=== PATIENT | male | born 1950 | race Caucasian/White ===

== ENCOUNTER 2018-02-14 03:06 | Inpatient (IN) | payer MEDICARE, OTHER ==
[2018-02-14] MEDS ORDERED: Magnesium Sulfate 2 GM/100 ML BAG ONE (03:13)
[2018-02-14] MEDS ORDERED: methylPREDNISolone Sod Succ/PF 125 MG/2 ML VIAL ONE ×2 (03:13→10:24)
[2018-02-14] MEDS ORDERED: Water For Inject, Bacteriostat 30 ML ONE ×2 (03:14→10:24)
[2018-02-14] MEDS ORDERED: Albuterol Sulfate 2.5 mg/3 ml Neb ONE ×4 (03:17)
[2018-02-14 03:29] LABS: #Basophils 0.1 thou/uL (0.0-0.2); #Eosinphils 0.9 thou/uL (0.0-0.7); #Lymphocytes 5.1 thou/uL (1.20-3.40); #Monocytes 1.4 thou/uL (0.11-0.59); #Neutrophils 5.9 thou/uL (1.40-6.50); %Basophils 0.5 % (0.0-1.0); %Eosinophils 6.6 % (0.0-10.0); %Lymphocytes 38.4 % (21.0-51.0); %Monocytes 10.2 % (0.0-10.0); %Neutrophils 44.3 % (42.0-75.0); Hemoglobin 17.3 g/dL (14.0-18.0); Mean Corpuscular HGB CONC 32.8 g/dL (32.0-36.0); Mean Corpuscular Hemoglobin 30.5 pg (27.0-31.0); Mean Corpuscular Volume 93.1 fL (78.0-98.0); Mean Platelet Volume 7.3 fL (7.4-10.4); Platelet Count 238 thou/uL (130-400); RBC Distribution Width 12.1 % (11.5-14.5); Red Blood Cell (RBC) Count 5.67 mill/uL (4.70-6.10); White Blood Cell (WBC) Count 13.2 thou/uL (4.8-10.8)
[2018-02-14 03:52] LABS: ALT (SGPT) 34 U/L (8-55); AST (SGOT) 26 U/L (5-34); Albumin 4.4 g/dL (3.4-4.8); Alkaline Phosphatase 55 U/L (40-150); Anion Gap 15 mmol/L (10-20); BUN (Urea Nitrogen) 9 mg/dL (8.4-25.7); Bilirubin, Total 0.6 mg/dL (0.2-1.2); CK (CPK) 294 U/L (30-200); Calc. Creatinine Clearance 0 mL/min (70-130); Calcium 10.2 mg/dL (7.8-10.44); Carbon Dioxide 28 mmol/L (23-31); Chloride 103 mmol/L (98-107); Estimated GFR-MDRD 73; Globulin 3.1 g/dL (2.4-3.5); Glucose 170 mg/dL (80-115); Potassium 3.4 mmol/L (3.5-5.1); Protein, Total 7.5 g/dL (5.8-8.1); Sodium 143 mmol/L (136-145)
[2018-02-14 03:53] LABS: Actual Bicarbonate (HCO3a) 29.7 mEq/L (22-28); Base Excess (BEa) 1.4 mEq/L (-2.0 to +3.0); CO2 Tension 61.8 mmHg (35.0-45.0); Hematocrit-ABG 50.9 % (42.0-52.0); Hemoglobin (Hb) 16.2 g/dL (14.0-18.0); O2 Tension (PaO2) 105.4 mmHg (> 80.0)
[2018-02-14 03:54] LABS: Analyzer IN Cardio ER; Calcium, Ionized 1.3 mmol/L (1.12-1.30); Puncture Site RRA
[2018-02-14 03:54] LABS: Troponin I 0.012 ng/mL (< 0.028)
[2018-02-14 04:01] LABS: CKMB 7.6 ng/mL (0-6.6)
[2018-02-14] MEDS ORDERED: Azithromycin 500 MG VIAL ONE (04:20)
[2018-02-14] MEDS ORDERED: cefTRIAXone\\ROCEPHIN 1 GM VIAL ONE (04:20)
[2018-02-14] MEDS ORDERED: Ondansetron HCl/PF 4 MG/2 ML Vial IVP PRN (04:23)
[2018-02-14] MEDS ORDERED: Acetaminophen 325 MG TAB PO PRN (04:23)
[2018-02-14] MEDS ORDERED: Furosemide 40 MG/4 ML VIAL SLOW IVP SCH (06:05)
[2018-02-14 06:29] LABS: Bilirubin Negative (Negative); Blood, Urine Negative (Negative); Clarity CLEAR (Clear); Glucose, Urine (Dipstick) Negative (Negative); Leukocyte Negative (Negative); Nitrite Negative (Negative); Protein, Urine (Dipstick) 30 mg/dL (Neg-Trace); Urobilinogen 0.2 mg/dL (0.2-1.0)
[2018-02-14 06:34] LABS: Bacteria/HPF None Seen HPF (None Seen); Hyaline Casts/LPF 0-3 HYALINE CAST LPF (0-3 Hyaline); RBC/HPF None Seen HPF (0-3); Squamous Epithelial None Seen HPF (0-3); WBC/HPF None Seen HPF (0-3)
[2018-02-14 07:46] LABS: Troponin I 0.046 ng/mL (< 0.028)
[2018-02-14] MEDS ORDERED: Furosemide 40 MG/4 ML VIAL ONE (08:00)
--- NOTE | 2018-02-14 08:38 | CT ---
CT CHEST NONCONTRAST: Date; 02/14/18 HISTORY: Dyspnea. Chest pain. FINDINGS: Exam was originally intended to be a CT arteriogram chest. Technical difficulty with contrast injecti on was encountered. This is a noncontrast CT exam. Tiny, partially calcified nodule at the left posterolateral lung base likely represents a calcified g ranuloma. Other scattered calcified granulomata are evident. Lungs are hyperinflated with scattered a reas of interstitial thickening. No focal infiltrate, pleural fluid, or pneumothorax. Lack of contrast limits evaluation of the soft tissues. There is scattered arterial calcification. No bulky mediastinal adenopathy. No secondary findings of large pulmonary embolus are evident. IMPRESSION: 1. Noncontrast CT chest exam was performed. No secondary findings of large pulmonary embolus or othe r acute abnormalities. 2. COPD. 3. Atherosclerosis. POS: FAM
--- NOTE | 2018-02-14 09:44 | RAD ---
PORTABLE CHEST: Date: 02/14/18 PROVIDED CLINICAL HISTORY: Dyspnea. FINDINGS: No comparisons. Cardiac and mediastinal silhouette is within normal limits. Nonspecific prominence of the hilar regio ns bilaterally. No definite focal consolidation, pleural fluid, or pneumothorax apparent. IMPRESSION: No radiographic evidence for an acute cardiopulmonary process. Please correlate with the subsequently performed CT chest. POS: [facility]
[2018-02-14] MEDS ORDERED: Enoxaparin Sodium 40 MG/0.4 ML SYRINGE ONE (10:05)
--- NOTE | 2018-02-14 10:12 | HP ---
CODE STATUS: FULL CODE. TIME OF EVALUATION: 04:20 a.m. PRIMARY CARE DOCTOR: The patient goes to CT, CHIEF COMPLAINT: Severe shortness of breath. HISTORY OF PRESENT ILLNESS: This is a 67 years old male patient with a past medical history of chron ic obstructive pulmonary disease, chronic respiratory failure, came to the hospital after having mirela re gradually worsening shortness of breath. The symptoms have been present for the past 2 days; broderick eugene, slowly got worse overnight, patient arrived to the ER, came by himself. He was cyanotic, lethar gic, saturation was in the 60s, patient improved with oxygen and BiPAP application. By the time of m y examination, vitals are improved, still tachycardic, still with significant bilateral wheezing; how ever, mental status much better. The patient is reporting he is feeling better, able to answer with yes or no questions. The patient also reported associated cough. Review of systems information was gathered from and the patient with the yes or no questions, since he is still in labored breathi ng. REVIEW OF SYSTEMS: Constitutional: No fever, no chills. The patient was reporting generalized weak ness. Respiratory: Cough, sputum production, gradually worsening severe shortness of breath. Cardi ovascular: No chest pain. Patient reported palpitations. Gastrointestinal: No nausea, vomiting. No diarrhea or abdominal pain. 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 Genitourinary: No burning on urination. Extremities: Bilateral leg swelling. All other systems were reviewed an d negative except for the findings mentioned above. PAST MEDICAL HISTORY: CVA in 2013, hyperlipidemia, hypertension, COPD, emphysema. PAST SURGICAL HISTORY: Orthopedic surgery in the shoulders, bilaterally; appendectomy. PSYCHIATRIC HISTORY: No psychiatric history. SOCIAL HISTORY: Four drinks a day; former smoker, quit 20 years ago. KNOWN ALLERGIES: DURAPREP. REPORTED MEDICATIONS: Pantoprazole, prednisone. PHYSICAL EXAMINATION: VITAL SIGNS: On presentation, heart rate 127, respiratory rate 27, oxygen saturation 96% on BiPAP. GENERAL APPEARANCE: The patient is in respiratory distress, alert, oriented. HEENT: Eye, normal conjunctivae. Moist oral mucosa. Eye anicteric. NECK: No JVD. RESPIRATORY: Bilateral air entry is reduced. The patient has bilateral wheezing. Symmetric expansi on . CARDIOVASCULAR: Patient is tachycardic, regular rhythm, no murmurs, no gallop. Bilateral leg edema. ABDOMEN: Soft, normal bowel sounds. MUSCULOSKELETAL: Baseline range of motion and strength. No tenderness. SKIN: Warm and intact. No pain. No rash. No redness. NEUROLOGIC: Baseline sensory. No evidence of any new focal weakness. Baseline speech. Cranial ner ves seem to be intact. PSYCHIATRIC: The patient is in good mood, no anxiety, oriented, optimal judgment. EKG, as discussed with the performing physician, he had a sinus tachycardia at the rate of 127. No e vidence of any acute ischemic findings. RADIOLOGY: Chest showed cardiomegaly, small pleural vascular congestion, no infiltrate. LABORATORY DATA: Labs were reviewed. The patient had a white count of 13.2, hemoglobin 17, MCV 93, platelet count 238. Blood gas was done, pH 7.3, pCO2 of 61, pO2 of 105 that was done on BiPAP, and 2 8% mechanical rate was . Chemistry: Sodium 143, potassium 3.4, chloride 103, carbon dioxide 20 , anion gap 15, BUN 9, creatinine 1.0, GFR 73, glucose 170, lactic acid 5.6, calcium 10.2, total bili goodson 0.6. AST, ALT, and alkaline phosphatase were normal. CK 294. Troponin was normal. Beta natr iuretic peptide was 20. ASSESSMENT AND PLAN: The patient was placed in the hospital for the following medical problems: 1. Acute hypoxic-hypercapnic respiratory failure, secondary to chronic obstructive pulmonary disease exacerbation that is severe, patient is on BiPAP, has improved. We will continue nebulizers, Solume drol, receive antibiotics. We will adjust the treatment depending on patient's clinical response. W e will consult Pulmonary in the morning. 2. Severe chronic obstructive pulmonary disease exacerbation. Treatment as above. 3. Leukocytosis, likely secondary to acute distress, no source of sepsis was found, has been treated for acute bronchitis. We will follow. We will treat accordingly. Patient is already receiving ant ibiotics. 4. Hypokalemia. This is mild, 3.4, we will replace electrolytes as needed. 5. Lactic acidosis, 5.6, likely secondary to hypoxia, was drained, patient already on antibiotics. 6. Hyperglycemia, likely due to acute distress. We will monitor. No need for any acute treatment a t this point. 7. Uncontrolled hypertension, secondary to acute physical distress. We will reconcile home medicati ons. Adjust as needed. 8. Deep vein thrombosis prophylaxis.
[2018-02-14 11:10] LABS: Troponin I 0.072 ng/mL (< 0.028)
[2018-02-14] MEDS ORDERED: ISOVUE-370 76%-LOCM 1 ML ONE (14:46)
[2018-02-14 15:10] VITALS: BMI 36.1
[2018-02-14] MEDS: Enoxaparin Sodium 40 MG/0.4 ML SYRINGE SC SCH (15:47)
[2018-02-14] MEDS: methylPREDNISolone Sod Succ/PF 125 MG/2 ML VIAL IVP SCH ×3 (15:48→21:08)
[2018-02-14] MEDS ORDERED: hydrALAZINE 20 MG/ML VIAL SLOW IVP SCH (17:15)
[2018-02-14] MEDS ORDERED: Fluticasone Propionate Nasal Spray 16 gm Bottle NASAL PRN (18:11)
[2018-02-15] MEDS: methylPREDNISolone Sod Succ/PF 125 MG/2 ML VIAL IVP SCH ×4 (04:05→20:27)
[2018-02-15] MEDS ORDERED: Azithromycin 500 MG in Sodium Chloride 0.9% 250 ML 250 ML IVPB SCH (04:30)
[2018-02-15] MEDS ORDERED: cefTRIAXone\\ROCEPHIN 1 GM in Sodium Chloride 0.9% 100 ML IVPB SCH (04:30)
[2018-02-15 05:15] LABS: #Lymphocytes 1.3 thou/uL (1.20-3.40); #Monocytes 0.4 thou/uL (0.11-0.59); #Neutrophils 9.3 thou/uL (1.40-6.50); %Basophils 0.3 % (0.0-1.0); %Eosinophils 0.1 % (0.0-10.0); %Lymphocytes 11.8 % (21.0-51.0); %Monocytes 3.3 % (0.0-10.0); %Neutrophils 84.5 % (42.0-75.0); Mean Corpuscular HGB CONC 32.4 g/dL (32.0-36.0); Mean Corpuscular Hemoglobin 29.6 pg (27.0-31.0); Mean Corpuscular Volume 91.6 fL (78.0-98.0); Mean Platelet Volume 7.4 fL (7.4-10.4); Platelet Count 235 thou/uL (130-400); RBC Distribution Width 12.1 % (11.5-14.5)
[2018-02-15 05:24] LABS: Anion Gap 18 mmol/L (10-20); BUN (Urea Nitrogen) 18 mg/dL (8.4-25.7); Calc. Creatinine Clearance 131 mL/min (70-130); Calcium 9.5 mg/dL (7.8-10.44); Carbon Dioxide 26 mmol/L (23-31); Chloride 103 mmol/L (98-107); Estimated GFR-MDRD 82; Glucose 167 mg/dL (80-115); Potassium 3.6 mmol/L (3.5-5.1); Sodium 143 mmol/L (136-145)
[2018-02-15] MEDS: Enoxaparin Sodium 40 MG/0.4 ML SYRINGE SC SCH (09:50)
[2018-02-15] MEDS: Benzonatate 100 MG CAP PO PRN ×2 (09:50→20:24)
[2018-02-15] MEDS ORDERED: Albuterol Sulfate 2.5 mg/3 ml Neb NEB PRN (12:01)
[2018-02-15] MEDS ORDERED: Hydrochlorothiazide 25 MG TAB PO SCH (12:30)
[2018-02-15] MEDS ORDERED: CROMOLYN SODIUM EA EYE SCH (13:00)
[2018-02-15] MEDS: Mometasone 100 MCG HFA INHALER INH SCH (19:10)
[2018-02-15] MEDS: Mometasone/Formoterol 120 PUFF INHALER INH SCH (19:11)
[2018-02-15] MEDS: Atorvastatin Calcium 20 MG TAB PO SCH (20:24)
[2018-02-15] MEDS: Loratadine 10 MG TAB PO SCH (20:24)
[2018-02-15] MEDS: Azelastine 137 MCG/Spray 30 ML NS SCH (20:51)
[2018-02-16] MEDS ORDERED: Nitroglycerin 0.4 MG TAB (25 Tab Bottle) PO PRN (02:49)
[2018-02-16] MEDS ORDERED: hydrALAZINE 20 MG/ML VIAL SLOW IVP PRN (02:50)
[2018-02-16] MEDS: methylPREDNISolone Sod Succ/PF 125 MG/2 ML VIAL IVP SCH ×2 (03:00→09:22)
[2018-02-16] MEDS: Losartan 25 MG TAB PO SCH (03:00)
[2018-02-16 03:36] LABS: #Lymphocytes 1.2 thou/uL (1.20-3.40); #Monocytes 0.3 thou/uL (0.11-0.59); #Neutrophils 12.1 thou/uL (1.40-6.50); %Eosinophils 0.1 % (0.0-10.0); %Lymphocytes 8.5 % (21.0-51.0); %Neutrophils 89.4 % (42.0-75.0); Hemoglobin 15.7 g/dL (14.0-18.0); Mean Corpuscular Hemoglobin 31.1 pg (27.0-31.0); Mean Corpuscular Volume 91.6 fL (78.0-98.0); Mean Platelet Volume 7.2 fL (7.4-10.4); Platelet Count 208 thou/uL (130-400); RBC Distribution Width 11.9 % (11.5-14.5); Red Blood Cell (RBC) Count 5.04 mill/uL (4.70-6.10); White Blood Cell (WBC) Count 13.5 thou/uL (4.8-10.8)
[2018-02-16 03:55] LABS: Anion Gap 13 mmol/L (10-20); BUN (Urea Nitrogen) 19 mg/dL (8.4-25.7); Calc. Creatinine Clearance 142 mL/min (70-130); Calcium 9.4 mg/dL (7.8-10.44); Carbon Dioxide 27 mmol/L (23-31); Chloride 104 mmol/L (98-107); Estimated GFR-MDRD 90; Glucose 195 mg/dL (80-115); Magnesium 2.5 mg/dL (1.6-2.6); Potassium 3.6 mmol/L (3.5-5.1); Sodium 140 mmol/L (136-145)
[2018-02-16 04:00] LABS: Troponin I 0.024 ng/mL (< 0.028)
[2018-02-16] MEDS: Benzonatate 100 MG CAP PO PRN (06:23)
[2018-02-16 07:02] LABS: Troponin I 0.014 ng/mL (< 0.028)
[2018-02-16] MEDS: Mometasone 100 MCG HFA INHALER INH SCH ×2 (07:56→18:53)
[2018-02-16] MEDS: Mometasone/Formoterol 120 PUFF INHALER INH SCH ×2 (07:56→18:55)
[2018-02-16] MEDS: Enoxaparin Sodium 40 MG/0.4 ML SYRINGE SC SCH (09:22)
[2018-02-16] MEDS: Hydrochlorothiazide 25 MG TAB PO SCH (09:23)
[2018-02-16] MEDS: Azelastine 137 MCG/Spray 30 ML NS SCH ×2 (09:23→20:46)
[2018-02-16] MEDS: Potassium Chloride 20 MEQ TAB PO SCH (09:23)
--- NOTE | 2018-02-16 10:51 | EKG ---
Test Reason : STAT Blood Pressure : / mmHG Vent. Rate : 091 BPM Atrial Rate : 091 BPM P-R Int : 152 ms QRS Dur : 102 ms QT Int : 378 ms P-R-T Axes : 061 059 073 degrees QTc Int : 464 ms Normal sinus rhythm Minimal voltage criteria for LVH, may be normal variant Borderline ECG When compared with ECG of 14-FEB-2018 03:18, (Unconfirmed) ST less depressed in Lateral leads T wave inversion no longer evident in Inferior leads Confirmed by COLLINS FARNSWORTH, DR. Vickers ([id number]) on 02/16/2018 10:50:21 AM Referred By: ANIL Confirmed By:DR. Rancho GUADALUPE MD
[2018-02-16] MEDS: Loratadine 10 MG TAB PO SCH (20:46)
[2018-02-16] MEDS: Atorvastatin Calcium 20 MG TAB PO SCH (20:46)
[2018-02-17] MEDS: Mometasone/Formoterol 120 PUFF INHALER INH SCH ×2 (05:58→21:27)
[2018-02-17] MEDS: Mometasone 100 MCG HFA INHALER INH SCH (06:01)
[2018-02-17] MEDS: Hydrochlorothiazide 25 MG TAB PO SCH (07:29)
[2018-02-17] MEDS: Enoxaparin Sodium 40 MG/0.4 ML SYRINGE SC SCH (07:29)
[2018-02-17] MEDS: Losartan 25 MG TAB PO SCH (07:29)
[2018-02-17] MEDS: Potassium Chloride 20 MEQ TAB PO SCH (07:29)
[2018-02-17] MEDS: Azelastine 137 MCG/Spray 30 ML NS SCH ×2 (07:30→21:06)
[2018-02-17] MEDS: predniSONE 20 MG TAB PO SCH (15:35)
[2018-02-17] MEDS: Benzonatate 100 MG CAP PO PRN (16:02)
[2018-02-17] MEDS: Labetalol HCl 100 MG/20 ML VIAL SLOW IVP PRN (19:10)
[2018-02-17] MEDS: Atorvastatin Calcium 20 MG TAB PO SCH (21:06)
[2018-02-17] MEDS: Loratadine 10 MG TAB PO SCH (21:06)
[2018-02-18] MEDS: Labetalol HCl 100 MG/20 ML VIAL SLOW IVP PRN ×2 (03:18→09:37)
[2018-02-18] MEDS: Mometasone/Formoterol 120 PUFF INHALER INH SCH (07:07)
[2018-02-18 07:26] VITALS: TEMP 98.6
[2018-02-18] MEDS: Enoxaparin Sodium 40 MG/0.4 ML SYRINGE SC SCH (07:41)
[2018-02-18] MEDS: Azelastine 137 MCG/Spray 30 ML NS SCH (07:41)
[2018-02-18] MEDS: Losartan 25 MG TAB PO SCH (07:42)
[2018-02-18] MEDS: predniSONE 20 MG TAB PO SCH (07:42)
[2018-02-18] MEDS: Potassium Chloride 20 MEQ TAB PO SCH (07:42)
[2018-02-18] MEDS: Hydrochlorothiazide 25 MG TAB PO SCH (07:42)
[2018-02-18] MEDS ORDERED: hydrALAZINE 25 MG TAB PO SCH ×2 (10:15→15:00)
--- NOTE | 2018-02-18 13:43 | EKG ---
Test Reason : RESP DISTRESS Blood Pressure : / mmHG Vent. Rate : 127 BPM Atrial Rate : 127 BPM P-R Int : 144 ms QRS Dur : 100 ms QT Int : 314 ms P-R-T Axes : 074 067 056 degrees QTc Int : [address] abnormality Abnormal ECG Confirmed by SOPHIE FARNSWORTH, ERON Rivas ([id number]), electronic news gathering editor LLOYD CLEARY ([id number]) on 02/18/2018 1:43:29 PM Referred By: Confirmed By:ERON BARRIOS MD
--- NOTE | 2018-02-18 14:15 | PDOC.PN ---
- Subjective Encounter Start Date: 02/15/18 Encounter Start Time: 11:30 -: old records requested/rev Pt sen and exmained, chart reviewed in its entirety This is my first visit with this patient. Still requiring O2, nathaly nebs, not asking for PRN nebs. No F/C, no cough, some COUGHLIN, no Abd pain, no N/V/D/C all systems reviewed and neg x as above - Objective Resuscitation Status: Resuscitation Status FULL:Full Resuscitation MAR Reviewed: Yes Vital Signs & Weight: Vital Signs (12 hours) Temp Pulse Resp BP BP BP Pulse Ox 02/18/18 14:05 86 18 90 L 02/18/18 12:25 168/96 H 02/18/18 11:44 168/104 H 02/18/18 10:56 183/107 H 02/18/18 10:19 67 18 02/18/18 09:37 72 182/102 H 02/18/18 08:56 183/99 H 02/18/18 08:00 98.6 F 78 20 02/18/18 07:24 98.6 F 78 20 169/106 H 91 L 02/18/18 07:07 68 18 93 L 02/18/18 07:04 68 18 93 L 02/18/18 04:00 68 24 H 155/94 H 90 L 02/18/18 03:18 75 185/100 H 02/18/18 02:25 76 18 92 L I&O: 02/17/18 02/18/18 02/19/18 06:59 06:59 06:59 Intake Total 480 800 Balance 480 800 Result Diagrams: 02/16/18 03:26 02/16/18 03:26 Radiology Reviewed by me: Yes EKG Reviewed by me: Yes Phys Exam - Physical Examination Constitutional: NAD HEENT: PERRLA, moist MMs, sclera anicteric, oral pharynx no lesions Neck: no nodes, no JVD, supple, full ROM Respiratory: wheezing present rhonchi, no rales Cardiovascular: RRR, no significant murmur, no rub Gastrointestinal: soft, non-tender, no distention, positive bowel sounds Musculoskeletal: pulses present, edema present Neurological: non-focal, normal sensation, moves all 4 limbs Lymphatic: no nodes Psychiatric: normal affect, A&O x 3 Skin: no rash, normal turgor, cap refill <2 seconds Dx/Plan (1) Acute bronchitis Code(s): J20.9 - ACUTE BRONCHITIS, UNSPECIFIED Status: Acute (2) COPD with acute exacerbation Code(s): J44.1 - CHRONIC OBSTRUCTIVE PULMONARY DISEASE W (ACUTE) EXACERBATION Status: Acute (3) HTN (hypertension) Code(s): I10 - ESSENTIAL (PRIMARY) HYPERTENSION Status: Acute (4) Acute hypoxemic respiratory failure Code(s): J96.01 - ACUTE RESPIRATORY FAILURE WITH HYPOXIA Status: Acute (5) Obesity Code(s): E66.9 - OBESITY, UNSPECIFIED Status: Chronic Qualifiers: Obesity type: due to excess calories Obesity classification: adult class 2 (BMI 35 - 39.9) (6) ERICK (obstructive sleep apnea) Code(s): G47.33 - OBSTRUCTIVE SLEEP APNEA (ADULT) (PEDIATRIC) Status: Chronic - Plan cont current plan of care, plan discussed w/ family, continue antibiotics, PT/OT , respiratory therapy, incentive spirometry, out of bed/ambulate * .
--- NOTE | 2018-02-18 14:24 | PDOC.PN ---
- Subjective Encounter Start Date: 02/16/18 Encounter Start Time: 09:30 contiues to improve, will exp wheezes and prolonged expiraitons. no F/C, no n/v/dC, no CP or cough all systems reviewed and neg x as above - Objective Resuscitation Status: Resuscitation Status FULL:Full Resuscitation Vital Signs & Weight: Vital Signs (12 hours) Temp Pulse Resp BP BP BP Pulse Ox 02/18/18 14:05 86 18 90 L 02/18/18 12:25 168/96 H 02/18/18 11:44 168/104 H 02/18/18 10:56 183/107 H 02/18/18 10:19 67 18 02/18/18 09:37 72 182/102 H 02/18/18 08:56 183/99 H 02/18/18 08:00 98.6 F 78 20 02/18/18 07:24 98.6 F 78 20 169/106 H 91 L 02/18/18 07:07 68 18 93 L 02/18/18 07:04 68 18 93 L 02/18/18 04:00 68 24 H 155/94 H 90 L 02/18/18 03:18 75 185/100 H 02/18/18 02:25 76 18 92 L I&O: 02/17/18 02/18/18 02/19/18 06:59 06:59 06:59 Intake Total 480 800 Balance 480 800 Result Diagrams: 02/16/18 03:26 02/16/18 03:26 Dx/Plan (1) Acute bronchitis Code(s): J20.9 - ACUTE BRONCHITIS, UNSPECIFIED Status: Acute (2) COPD with acute exacerbation Code(s): J44.1 - CHRONIC OBSTRUCTIVE PULMONARY DISEASE W (ACUTE) EXACERBATION Status: Acute (3) HTN (hypertension) Code(s): I10 - ESSENTIAL (PRIMARY) HYPERTENSION Status: Acute (4) Acute hypoxemic respiratory failure Code(s): J96.01 - ACUTE RESPIRATORY FAILURE WITH HYPOXIA Status: Acute (5) Obesity Code(s): E66.9 - OBESITY, UNSPECIFIED Status: Chronic Qualifiers: Obesity type: due to excess calories Obesity classification: adult class 2 (BMI 35 - 39.9) (6) ERICK (obstructive sleep apnea) Code(s): G47.33 - OBSTRUCTIVE SLEEP APNEA (ADULT) (PEDIATRIC) Status: Chronic - Plan * .
--- NOTE | 2018-02-18 14:32 | DIS ---
DATE OF ADMISSION: 02/14/2018 DATE OF DISCHARGE: 02/18/2018 PRIMARY CARE PHYSICIAN: Out of [facility]. DISCHARGE DIAGNOSES: 1. Acute bronchitis. 2. Acute exacerbation of chronic obstructive pulmonary disease. 3. Acute respiratory failure with hypoxia, resolved. 4. Obesity. 5. Essential hypertension. CONSULTATIONS: None. PROCEDURES: None. HISTORY AND PHYSICAL: Mr. Jimmy Hernandez is a 67-year-old gentleman with progressive shortness of b reath after coming back from out of town. He presented to the emergency department for evaluation an d found to be hypoxic with acute exacerbation of COPD. We were called for admission. HOSPITAL COURSE: The patient was seen and examined, placed on nebulizer treatments, IV steroids, ant ibiotics and his home medications. Overnight 02/14/2018 to 02/15/2018, the patient improved. He was still having expiratory wheezes and was still hypoxic requiring oxygen. Echocardiogram was largely unremarkable and the patient was continued on treatment. By 02/16/2018, he was requiring less oxygen particularly at rest and tolerated his nebs. He was not asking for the p.r.n. nebs as scheduled. Continued on q.4 DuoNeb. By 02/17/2018, he was doing even better. His labs remained stable. He was off oxygen and requiring minimal oxygen when ambulating with lowest oxygen sat of 80%. Due to being close to needing oxygen w ith ambulation, we watched him one more night. His respiratory status slowly continued to improve as he transitioned to oral steroids. He continued Levaquin and was doing better with p.r.n. albuterol nebs. He was stable for discharge with outpatient followup. PHYSICAL EXAMINATION: The patient was seen and examined at the bedside. Discharge plan and disposition were discussed with the patient and his [id number] at the [facility]. DISCHARGE MEDICATIONS: 1. DuoNeb q.6 hours. 2. Albuterol 2.5 mg nebulized q.2 hours p.r.n. shortness of breath and wheezing. 3. Levaquin 500 mg daily for 3 more days. 4. Home medicines were continued. Please see the discharge summary medication reconciliation. FOLLOWUP APPOINTMENTS: Primary care physician at the [facility] within a week. DISCHARGE ACTIVITY: Per cardiopulmonary limits. DISCHARGE CONDITION: Stable. DISPOSITION: Discharged home via private vehicle with his .
[2018-02-18 15:06] VITALS: BP 165/90
== END 2018-02-18 15:26 | disposition home or self-care (01) | DRG 189 ==
LOC: ERS 03:06 → ERHOLD 04:00 → T4-A 14:14
PROVIDERS: ADMIT Hospitalist; ATTEND Hospitalist
DX: J96.21 Acute and chronic respiratory failure with hypoxia (principal); J44.1 Chronic obstructive pulmonary disease with (acute) exacerbation; E87.2 Acidosis; J44.0 Chronic obstructive pulmonary disease with (acute) lower respiratory infection; J96.22 Acute and chronic respiratory failure with hypercapnia; J20.9 Acute bronchitis, unspecified; E78.5 Hyperlipidemia, unspecified; I10 Essential (primary) hypertension; E87.6 Hypokalemia; R73.9 Hyperglycemia, unspecified; E66.9 Obesity, unspecified; G47.33 Obstructive sleep apnea (adult) (pediatric); Z86.73 Personal history of transient ischemic attack (TIA), and cerebral infarction without residual deficits; Z87.891 Personal history of nicotine dependence; Z68.36 Body mass index [BMI] 36.0-36.9, adult
CPT/HCPCS: 36415; 71045; 71275; 80048; 80053; 81003; 81015; 82553; 82805; 83605; 83735; 83880; 84484; 85025; 87040; 93005; 93010; 93306; 94640; 94660; 94760; 96365; 96367; 96372; 96375; 96376; J0360; J0456; J0696; J1650; J1940; J2930; J3475; J7050; J7506; J7611; J7620

== ENCOUNTER 2018-03-02 16:13 | Emergency (ER) | payer OTHER ==
[2018-03-02] MEDS ORDERED: Albuterol Sulfate 2.5 mg/3 ml Neb ONE (17:13)
[2018-03-02] MEDS ORDERED: Dexamethasone 4 mg/ml Vial ONE (17:15)
[2018-03-02 17:27] LABS: #Eosinphils 0.5 thou/uL (0.0-0.7); #Lymphocytes 1.4 thou/uL (1.20-3.40); #Monocytes 0.8 thou/uL (0.11-0.59); #Neutrophils 5.6 thou/uL (1.40-6.50); %Basophils 0.5 % (0.0-1.0); %Eosinophils 5.7 % (0.0-10.0); %Lymphocytes 16.9 % (21.0-51.0); %Monocytes 9.4 % (0.0-10.0); %Neutrophils 67.4 % (42.0-75.0); Hemoglobin 15.6 g/dL (14.0-18.0); Mean Corpuscular HGB CONC 33.2 g/dL (32.0-36.0); Mean Corpuscular Hemoglobin 30.4 pg (27.0-31.0); Mean Corpuscular Volume 91.6 fL (78.0-98.0); Mean Platelet Volume 7.4 fL (7.4-10.4); Platelet Count 172 thou/uL (130-400); RBC Distribution Width 12.1 % (11.5-14.5); Red Blood Cell (RBC) Count 5.12 mill/uL (4.70-6.10); White Blood Cell (WBC) Count 8.4 thou/uL (4.8-10.8)
[2018-03-02 17:27] LABS: Actual Bicarbonate (HCO3a) 27.4 mEq/L (22-28); Base Excess (BEa) 2.1 mEq/L (-2.0 to +3.0); CO2 Tension 45.2 mmHg (35.0-45.0); Hemoglobin (Hb) 15.4 g/dL (14.0-18.0); O2 Tension (PaO2) 63.7 mmHg (> 80.0)
[2018-03-02 17:28] LABS: Analyzer IN Cardio ER; Calcium, Ionized 1.2 mmol/L (1.12-1.30); Puncture Site RRA
[2018-03-02] MEDS ORDERED: Magnesium Sulfate 2 GM in Sodium Chloride 0.9% 100 ML IVPB SCH (17:45)
--- NOTE | 2018-03-02 17:45 | RAD ---
TWO AP VIEWS OF THE CHEST: 03/02/18 INDICATION: History of shortness of breath. COMPARISON: Prior exam dated 02/14/18. IMPRESSION: No acute cardiopulmonary abnormality. Examination is not appreciably changed from the comparison. POS: JAZMÍN
[2018-03-02 17:56] LABS: ALT (SGPT) 23 U/L (8-55); AST (SGOT) 19 U/L (5-34); Alkaline Phosphatase 47 U/L (40-150); Anion Gap 11 mmol/L (10-20); BUN (Urea Nitrogen) 18 mg/dL (8.4-25.7); Bilirubin, Total 0.7 mg/dL (0.2-1.2); CK (CPK) 247 U/L (30-200); Calc. Creatinine Clearance 0 mL/min (70-130); Calcium 9.5 mg/dL (7.8-10.44); Carbon Dioxide 27 mmol/L (23-31); Chloride 108 mmol/L (98-107); Estimated GFR-MDRD 75; Globulin 2.6 g/dL (2.4-3.5); Glucose 81 mg/dL (80-115); Lipase 23 U/L (8-78); Potassium 3.3 mmol/L (3.5-5.1); Protein, Total 6.6 g/dL (5.8-8.1); Sodium 143 mmol/L (136-145); Troponin I Less than 0.010 ng/mL (< 0.028)
--- NOTE | 2018-03-11 10:39 | EKG ---
Test Reason : Blood Pressure : / mmHG Vent. Rate : 069 BPM Atrial Rate : 069 BPM P-R Int : 140 ms QRS Dur : 098 ms QT Int : 424 ms P-R-T Axes : 072 054 051 degrees QTc Int : 454 ms Poor data quality, interpretation may be adversely affected Sinus rhythm with Blocked Premature atrial complexes Otherwise normal ECG Confirmed by LAYNE FARNSWORTH, JOSE A ([id number]), editor managing director LLOYD CLEARY ([id number]) on 03/11/2018 10:38:52 AM Referred By: Confirmed By:JOSE A TILLMAN MD
== END 2018-03-02 19:39 | disposition home or self-care (01) ==
LOC: ERS 16:13
DX: J44.1 Chronic obstructive pulmonary disease with (acute) exacerbation (principal); E78.5 Hyperlipidemia, unspecified; I48.91 Unspecified atrial fibrillation; I10 Essential (primary) hypertension; Z87.891 Personal history of nicotine dependence; Z86.73 Personal history of transient ischemic attack (TIA), and cerebral infarction without residual deficits; Z79.51 Long term (current) use of inhaled steroids; Z79.899 Other long term (current) drug therapy
CPT/HCPCS: 71045; 80053; 82553; 82805; 83690; 83880; 84484; 85025; 85379; 93005; 94644; 96374; 96375; J1100; J3475; J7050; J7611; J7620